=== PATIENT | male | born 1930 | race Caucasian/White ===

== ENCOUNTER 2017-09-22 10:35 | Emergency (ER) | payer OTHER ==
[~2017-09-22] VITALS: Ht 177.8 cm; Wt 117.0 kg
[2017-09-22 10:37] VITALS: BP 116/66; PULSE 85; RESP 12; TEMP 98.4; O2SAT 91
[2017-09-22 11:13] VITALS: O2SAT 97
[2017-09-22] MEDS ORDERED: SODIUM CHLORIDE 0.9% FLUSH 10 ML FLUSH IVF PRN (11:30)
--- NOTE | 2017-09-22 11:42 | PD ---
HPI Chief Complaint: Medical Clearance Time Seen by Provider: 11:35 Travel History International Travel<30 days: No Contact w/Intl Traveler<30days: No Traveled to known affect area: No History of Present Illness HPI 86yo M presented to the ED by referral from Dr. Shore. Two days prior Dr. Shore increased his Atenolol dosage to 50mg BID and returned to clinic today for a checkup to find an elevated HR about 136. Pt has a significant medical history of AFib, HTN and high cholesterol. Pt also states that he has had a URI for about 4-5 days. Pt denies any lightheadness, chest pain, SOB, palpitations. Pt does report exertional dyspnea. Modifying Factors: None Associated Signs & Symptoms: A. fib with RVR, sent in by Dr. Shore Risk Factors: History of A. fib PFSH Social History Alcohol Use: No Tobacco Use: No Substance Use: No Allergies-Medications (Allergen,Severity, Reaction): Coded Allergies: penicillin G (Verified Allergy, Severe, RASH , 09/22/17) Review of Systems Except as stated in HPI: all other systems reviewed are Neg Respiratory: Positive: Cough Physical Exam Narrative GENERAL: 86yo W/M well-developed and well nourished elderly white male, in no apparent distress. Alert and oriented x3. SKIN: Warm and dry. HEAD: Atraumatic. Normocephalic. NECK: Trachea midline. No JVD. Supple. CARDIOVASCULAR: Irregularly irregular and tachycardic. RESPIRATORY: No accessory muscle use. Clear to auscultation. Breath sounds equal bilaterally. Mild upper respiratory congestion. GASTROINTESTINAL: Abdomen soft, non-tender, nondistended. Hepatic and splenic margins not palpable. MUSCULOSKELETAL: Extremities without clubbing, and cyanosis. No obvious deformities. Bilateral pedal edema. NEUROLOGICAL: Awake and alert. No obvious cranial nerve deficits. Motor grossly within normal limits. Normal speech. PSYCHIATRIC: Appropriate mood and affect; insight and judgment normal. Data Data Last Documented VS Vital Signs Date Time Temp Pulse Resp B/P (MAP) Pulse Ox O2 Delivery O2 Flow Rate FiO2 09/22/17 12:58 75 17 134/92 (106) 94 Room Air 09/22/17 10:37 98.4 Orders Orders Electrocardiogram (09/22/17 11:26) Basic Metabolic Panel (Bmp) (09/22/17 11:26) Ckmb (Isoenzyme) Profile (09/22/17 11:26) Complete Blood Count With Diff (09/22/17 11:26) Magnesium (Mg) (09/22/17 11:26) Troponin I (09/22/17 11:26) Chest, Single Ap (09/22/17 11:26) Ecg Monitoring (09/22/17 11:26) Bilateral Bp Monitoring (09/22/17 11:26) Iv Access Insert/Monitor (09/22/17 11:26) Oximetry (09/22/17 11:26) Oxygen Administration (09/22/17 11:26) Sodium Chloride 0.9% Flush (Ns Flush) (09/22/17 11:30) B-Type Natriuretic Peptide (09/22/17 11:35) Labs Laboratory Tests Test 09/22/17 11:45 White Blood Count 6.6 TH/MM3 Red Blood Count 4.78 MIL/MM3 Hemoglobin 14.8 GM/DL Hematocrit 43.2 % Mean Corpuscular Volume 90.5 FL Mean Corpuscular Hemoglobin 31.0 PG Mean Corpuscular Hemoglobin Concent 34.3 % Red Cell Distribution Width 13.6 % Platelet Count 126 TH/MM3 Mean Platelet Volume 9.4 FL Neutrophils (%) (Auto) 62.6 % Lymphocytes (%) (Auto) 27.0 % Monocytes (%) (Auto) 8.3 % Eosinophils (%) (Auto) 1.6 % Basophils (%) (Auto) 0.5 % Neutrophils # (Auto) 4.1 TH/MM3 Lymphocytes # (Auto) 1.8 TH/MM3 Monocytes # (Auto) 0.5 TH/MM3 Eosinophils # (Auto) 0.1 TH/MM3 Basophils # (Auto) 0.0 TH/MM3 CBC Comment DIFF FINAL Differential Comment Blood Urea Nitrogen 19 MG/DL Creatinine 1.13 MG/DL Random Glucose 117 MG/DL Calcium Level 8.2 MG/DL Magnesium Level 2.4 MG/DL Sodium Level 141 MEQ/L Potassium Level 4.2 MEQ/L Chloride Level 108 MEQ/L Carbon Dioxide Level 26.1 MEQ/L Anion Gap 7 MEQ/L Estimat Glomerular Filtration Rate 62 ML/MIN Total Creatine Kinase 74 U/L Troponin I 0.03 NG/ML B-Type Natriuretic Peptide 151 PG/ML MDM Medical Decision Making Medical Screen Exam Complete: Yes Emergency Medical Condition: Yes Medical Record Reviewed: Yes Interpretation(s) EKG shows A. fib with a rate of 88 bpm. No signs of acute ST-T changes. Laboratory Tests Test 09/22/17 11:45 Platelet Count 126 TH/MM3 (150-450) Monocytes (%) (Auto) 8.3 % (0.0-8.0) Blood Urea Nitrogen 19 MG/DL (7-18) Random Glucose 117 MG/DL (74-106) Calcium Level 8.2 MG/DL (8.5-10.1) Chloride Level 108 MEQ/L (98-107) Estimat Glomerular Filtration Rate 62 ML/MIN (>89) B-Type Natriuretic Peptide 151 PG/ML (0-100) Last 24 hours Impressions Chest X-Ray 09/22/17 1126 Signed Impressions: Service Date/Time: Friday, September 22, 2017 12:04 - CONCLUSION: 1. Minimal basilar atelectasis. Tortuous aorta. Mic Gutierrez MD Differential Diagnosis Dysrhythmias versus dehydration versus metabolic issues Narrative Course EKG shows A. fib with a rate of 88 bpm in the ER. Lab work was otherwise unremarkable. Patient is completely asymptomatic. He states that sometimes he notices that he has a little dyspnea on exertion. Case was discussed with Dr. Delacruz who is covering for Dr. Shore and he states that he would like the patient to receive Cardizem 30 twice a day in addition to his current regimen and have him follow-up with cardiology. Return for any worsening in symptoms as needed. The plan has been discussed with the patient and he states understanding. Diagnosis Primary Impression: Atrial fibrillation with RVR Additional Instructions: Follow-up with Dr. Shore. Take medications as prescribed. Return for any worsening in symptoms as needed. Med/Other Pt SpecificInfo: Prescription(s) given Scripts Diltiazem (Cardizem) 30 Mg Tab 30 MG PO BID for Angina, #20 TAB 0 Refills Prov: Yohana Pierce MD 09/22/17 Disposition: 01 DISCHARGE HOME Condition: Stable Yohana Pierce MD Sep 22, 2017 11:42
[2017-09-22 11:45] VITALS: O2SAT 96
[2017-09-22 11:57] LABS: AUTOMATED NEUTROPHIL # 4.1 TH/MM3 (1.8-7.7); BASOPHIL % 0.5 % (0.0-2.0); EOSINOPHIL # 0.1 TH/MM3 (0-0.4); EOSINOPHIL % 1.6 % (0.0-4.0); HEMATOCRIT 43.2 % (39.0-51.0); HEMOGLOBIN 14.8 GM/DL (13.0-17.0); LYMPHOCYTE # 1.8 TH/MM3 (1.0-4.8); MEAN CELL VOLUME 90.5 FL (80.0-100.0); MEAN CORPUSCULAR HGB CONC 34.3 % (32.0-36.0); MEAN PLATELET VOLUME 9.4 FL (7.0-11.0); MONO % 8.3 % (0.0-8.0); MONOCYTE # 0.5 TH/MM3 (0-0.9); NEUT % 62.6 % (16.0-70.0); PLATELET COUNT 126 TH/MM3 (150-450); RED BLOOD COUNT 4.78 MIL/MM3 (4.50-5.90); RED CELL DISTRIBUTION WIDTH 13.6 % (11.6-17.2); WHITE BLOOD COUNT 6.6 TH/MM3 (4.0-11.0)
[2017-09-22 12:20] LABS: TROPONIN I 0.03 NG/ML (0.02-0.05)
--- NOTE | 2017-09-22 12:23 | RADRPT ---
EXAM DATE/TIME: 09/22/2017 12:04 [facility] COMPARISON: No previous studies available for comparison. INDICATIONS : Palpitations, short of breath MEDICAL HISTORY : None. SURGICAL HISTORY : None. ENCOUNTER: Initial ACUITY: 1 day PAIN SCORE: 2/10 LOCATION: Bilateral chest FINDINGS: A single view of the chest demonstrates minimal basilar atelectasis. No effusion. No pneumothorax. Ca rdiomegaly. Tortuous aorta. CONCLUSION: 1. Minimal basilar atelectasis. Tortuous aorta. Mic Gutierrez MD on September 22, 2017 at 12:20 Board Certified Radiologist. This report was verified electronically.
[2017-09-22 12:33] LABS: BICARBONATE 26.1 MEQ/L (21.0-32.0); CALCIUM 8.2 MG/DL (8.5-10.1); CREATININE 1.13 MG/DL (0.60-1.30); MAGNESIUM 2.4 MG/DL (1.5-2.5)
[2017-09-22 12:58] VITALS: BP 134/92; O2SAT 94
[2017-09-22] MEDS ORDERED: DILT31TA PO (13:48)
[2017-09-22 14:00] VITALS: BP 175/81
--- NOTE | 2017-09-23 15:28 | EKG ---
Date Performed: 09/22/2017 Time Performed: 11:42:10 PTAGE: 86 years EKG: ATRIAL FIBRILLATION BORDERLINE LEFT AXIS DEVIATION MINIMAL VOLTAGE CRITERIA FOR LVH, CONSID ER NORMAL VARIANT NONSPECIFIC T-WAVE ABNORMALITY ABNORMAL RHYTHM ECG NO PREVIOUS TRACING DOCTOR: Rich Delacruz Interpretating Date/Time 09/23/2017 15:27:31
== END 2017-09-22 14:09 | disposition home or self-care (01) ==
LOC: NEPC 10:35
DX: I48.91 Unspecified atrial fibrillation (principal); R06.02 Shortness of breath
CPT/HCPCS: 71045; 80048; 82550; 83735; 83880; 84484; 85025; 93005; 99285